=== PATIENT | male | born 1965 | race Caucasian/White ===

== ENCOUNTER 2016-09-09 02:46 | Emergency (ER) | payer OTHER ==
[~2016-09-09] VITALS: Ht 182.9 cm; Wt 88.0 kg
[~2016-09-09 02:46] MED LIST: PRIL40CA PO
[2016-09-09 02:48] VITALS: BP 141/95; PULSE 78; RESP 18; TEMP 98.2; O2SAT 98
[2016-09-09] MEDS ORDERED: HYDR12.57 PO (03:36)
[2016-09-09] MEDS ORDERED: OMEP40CA2 PO (03:36)
--- NOTE | 2016-09-09 04:09 | PD ---
HPI Chief Complaint: Syncope/Near-Syncope Time Seen by Provider: 03:34 Travel History International Travel<30 days: No Contact w/Intl Traveler<30days: No Traveled to known affect area: No History of Present Illness HPI 51-year-old male here for evaluation of feeling nauseous/lightheaded/dizzy. Patient reports symptoms have been going on for the last week. He states he feels as though he is sea sick. He states that last weekend he notices blood pressure was elevated and he was seen by his primary care physician 5 days ago and was started on hydrochlorothiazide. Patient drank about 5 beers tonight, and reports persistent nauseous feeling. He denies chest pain or dyspnea. No fevers or recent illness. No abdominal pain. No paresthesias or motor deficits. No visual disturbances. Patient feels as though he may pass out, but denies having any syncopal episodes. PFSH Past Medical History Cardiovascular Problems: Yes (Heart Murmur) Diminished Hearing: No GERD: Yes Hypertension: Yes ?: Not Past Surgical History Surgical History: No Previous Surgery Social History Alcohol Use: Yes (EARLIER TONIGHT ) Tobacco Use: No Substance Use: No Allergies-Medications (Allergen,Severity, Reaction): Coded Allergies: Penicillin (Verified Allergy, Severe, 06/06/15) Reported Meds & Prescriptions Reported Meds & Active Scripts Active Reported Hydrochlorothiazide 12.5 Mg Cap 12.5 Mg PO DAILY Omeprazole 40 Mg Cap 40 Mg PO DAILY Prilosec 40 mg cap (Omeprazole) 40 Mg Cap 40 Mg PO DAILY Review of Systems Except as stated in HPI: all other systems reviewed are Neg Physical Exam Narrative GENERAL: Well-developed, well-nourished, awake, alert, GCS 15, no acute distress. SKIN: Focused skin assessment warm/dry. No pallor. No rashes. HEAD: Atraumatic. Normocephalic. EYES: Pupils equal, round, 3 mm, reactive to light. EOMI. No scleral icterus. No injection or drainage. ENT: No nasal bleeding or discharge. Mucous membranes pink and moist. Bilateral tympanic and rates and external auditory canals are normal. NECK: Trachea midline. No JVD. CARDIOVASCULAR: Regular rate and rhythm. RESPIRATORY: No accessory muscle use. Clear to auscultation. Breath sounds equal bilaterally. GASTROINTESTINAL: Abdomen soft, non-tender, nondistended. MUSCULOSKELETAL: No obvious deformities. No clubbing. No cyanosis. No edema. NEUROLOGICAL: Awake and alert. No obvious cranial nerve deficits. Motor grossly within normal limits. Normal speech. No focal deficits. Normal finger- nose-finger test bilaterally. No pronator drift. PSYCHIATRIC: Appropriate mood and affect; insight and judgment normal. Data Data Last Documented VS Vital Signs Date Time Temp Pulse Resp B/P Pulse Ox O2 Delivery O2 Flow Rate FiO2 09/09/16 02:48 98.2 78 18 141/95 98 Room Air Orders Basic Metabolic Panel (Bmp) (09/09/16 04:01) Ckmb (Isoenzyme) Profile (09/09/16 04:01) Complete Blood Count With Diff (09/09/16 04:01) Magnesium (Mg) (09/09/16 04:01) Prothrombin Time / Inr (Pt) (09/09/16 04:01) Act Partial Throm Time (Ptt) (09/09/16 04:01) Troponin I (09/09/16 04:01) Ecg Monitoring (09/09/16 04:01) Iv Access Insert/Monitor (09/09/16 04:01) Oximetry (09/09/16 04:01) Sodium Chloride 0.9% Flush (Ns Flush) (09/09/16 04:15) Alcohol (Ethanol) (09/09/16 04:01) Sodium Chlor 0.9% 1000 Ml Inj (Ns 1000 M (09/09/16 04:15) Metoclopramide Inj (Reglan Inj) (09/09/16 04:15) Ct Brain W/O Iv Contrast(Rout) (09/09/16 ) CKMB (09/09/16 04:10) CKMB% (09/09/16 04:10) Labs Laboratory Tests Test 09/09/16 04:10 White Blood Count 7.2 TH/MM3 Red Blood Count 5.30 MIL/MM3 Hemoglobin 16.0 GM/DL Hematocrit 45.2 % Mean Corpuscular Volume 85.3 FL Mean Corpuscular Hemoglobin 30.2 PG Mean Corpuscular Hemoglobin 35.4 % Concent Red Cell Distribution Width 13.7 % Platelet Count 239 TH/MM3 Mean Platelet Volume 9.9 FL Neutrophils (%) (Auto) 65.9 % Lymphocytes (%) (Auto) 23.8 % Monocytes (%) (Auto) 8.5 % Eosinophils (%) (Auto) 1.3 % Basophils (%) (Auto) 0.5 % Neutrophils # (Auto) 4.8 TH/MM3 Lymphocytes # (Auto) 1.7 TH/MM3 Monocytes # (Auto) 0.6 TH/MM3 Eosinophils # (Auto) 0.1 TH/MM3 Basophils # (Auto) 0.0 TH/MM3 CBC Comment DIFF FINAL Differential Comment Prothrombin Time 10.2 SEC Prothromb Time International 0.9 RATIO Ratio Activated Partial 27.1 SEC Thromboplast Time Anion Gap 8 MEQ/L Estimat Glomerular Filtration 79 ML/MIN Rate Total Creatine Kinase 241 U/L Creatine Kinase MB 1.9 NG/ML Troponin I LESS THAN 0.02 NG/ML Ethyl Alcohol Level 8 MG/DL [facility] Medical Decision Making Medical Screen Exam Complete: Yes Emergency Medical Condition: Yes Medical Record Reviewed: Yes Interpretation(s) EKG: Sinus, rate 75, left axis deviation, normal intervals, no acute ischemic abnormality. Differential Diagnosis Intracranial abnormality, vertigo, anemia, metabolic abnormality Narrative Course Vital signs show heart rate 78, blood pressure 141/95, pulse ox 98% on room air , oral temp of 98.2F. CBC is unremarkable. BMP is unremarkable. Cardiac enzymes are negative. Alcohol level is 8. CT head: Unremarkable study. Chart review shows that the patient has history of mild aortic stenosis. The patient reports that he gets this checked every year and has remained unchanged. On exam there is no obvious or harsh murmur. He has also not had any syncopal episodes. He was given Reglan IV and reports feeling improved. He is tolerating clear liquids. He is denying headache. No chest pain. There are no significant neurologic findings on exam. His symptoms were exacerbated by movements. Sounds more like peripheral vertigo. At this point patient is stable for discharge home with outpatient follow-up with his primary care physician. He is a follow-up appointment with his physician on Saturday as she just started him on hydrochlorothiazide last week. He was informed on when to return to the emergency department. He verbalizes understanding and agreement with plan. Diagnosis Primary Impression: Dizziness Referrals: Primary Care Physician 3 days Additional Instructions: Follow-up with your primary care physician this week as scheduled. Return to the emergency department for worsening symptoms or any other concerns. Scripts Metoclopramide (Reglan)10 Mg Tab10 Mg PO TIDAC #20 TAB Ref 0 Prov:Paul Mcleod MD 09/09/16 Disposition: 01 DISCHARGE HOME Condition: Stable Paul Mcleod MD Sep 09, 2016 04:09
[2016-09-09] MEDS ORDERED: METOCLOPRAMIDE HCL 10 MG/2 ML VIAL IV PUSH ONE (04:15)
[2016-09-09] MEDS ORDERED: SODIUM CHLORIDE 0.9% FLUSH 10 ML FLUSH IVF PRN (04:15)
[2016-09-09] MEDS ORDERED: SODIUM CHLOR 0.9% 1000 ML INJ 1,000 ML IV ONE (04:15)
[2016-09-09 04:42] LABS: AUTOMATED NEUTROPHIL # 4.8 TH/MM3 (1.8-7.7); BASOPHIL % 0.5 % (0.0-2.0); EOSINOPHIL # 0.1 TH/MM3 (0-0.4); EOSINOPHIL % 1.3 % (0.0-4.0); HEMATOCRIT 45.2 % (39.0-51.0); HEMO FLAGS DIFF FINAL; LYMPH % 23.8 % (9.0-44.0); LYMPHOCYTE # 1.7 TH/MM3 (1.0-4.8); MEAN CELL VOLUME 85.3 FL (80.0-100.0); MEAN CORPUSCULAR HEMOGLOBIN 30.2 PG (27.0-34.0); MEAN CORPUSCULAR HGB CONC 35.4 % (32.0-36.0); MONO % 8.5 % (0.0-8.0); NEUT % 65.9 % (16.0-70.0); PLATELET COUNT 239 TH/MM3 (150-450); RED CELL DISTRIBUTION WIDTH 13.7 % (11.6-17.2); WHITE BLOOD COUNT 7.2 TH/MM3 (4.0-11.0)
[2016-09-09 04:56] LABS: APTT (PATIENT) 27.1 SEC (24.3-30.1); INTERNATIONAL NORMALIZED RATIO 0.9 RATIO; PROTHROMBIN TIME - PATIENT 10.2 SEC (9.8-11.6)
[2016-09-09 05:01] LABS: ANION GAP 8 MEQ/L (5-15); BLOOD UREA NITROGEN 16 MG/DL (7-18); CHLORIDE 97 MEQ/L (98-107); GLOMERULAR FILTRATION RATE 79 ML/MIN (>89); MAGNESIUM 2.1 MG/DL (1.5-2.5); POTASSIUM 3.6 MEQ/L (3.5-5.1); SODIUM (NA) 135 MEQ/L (136-145)
[2016-09-09 05:04] LABS: CREATINE KINASE 241 U/L (39-308)
[2016-09-09 05:16] LABS: CKMB 1.9 NG/ML (0.5-3.6)
--- NOTE | 2016-09-09 05:16 | RADRPT ---
EXAM DATE/TIME: 09/09/2016 05:03 [facility] COMPARISON: No previous studies available for comparison. INDICATIONS : Dizziness. RADIATION DOSE: 56.35 CTDIvol (mGy) MEDICAL HISTORY : Gastroesophageal reflux disease. Hypertension. Cardiovascular disease SURGICAL HISTORY : None. ENCOUNTER: Initial ACUITY: 1 day PAIN SCALE: 0/10 LOCATION: cranial TECHNIQUE: Multiple contiguous axial images were obtained of the head. Using automated exposure control and adj ustment of the mA and/or kV according to patient size, radiation dose was kept as low as reasonably a chievable to obtain optimal diagnostic quality images. FINDINGS: There is no evidence for intracranial hemorrhage, mass effect, mass lesions, edema, or extra-axial fl uid collections. The visualized bony structures appear intact. The ventricles are normal size for t he patient's age. There are no signs of acute infarction for technique. CONCLUSION: Unremarkable study. Evangelist Gan MD on September 09, 2016 at 5:13 Board Certified Radiologist. This report was verified electronically.
[2016-09-09] MEDS ORDERED: REGL10TA5 PO (05:34)
--- NOTE | 2016-09-09 14:46 | EKG ---
Date Performed: 09/09/2016 Time Performed: 03:29:13 PTAGE: 51 years EKG: Borderline left axis deviation Otherwise within normal limits Since PREVIOUS TRACING 06/06/2015, no significant change. PREVIOUS TRACIN06/06/2015 02.04 DOCTOR: Mainor Strickland Interpretating Date/Time 09/09/2016 14:45:29
== END 2016-09-09 05:47 | disposition home or self-care (01) ==
LOC: NEPE 02:46
DX: R42 Dizziness and giddiness (principal); I10 Essential (primary) hypertension; R01.1 Cardiac murmur, unspecified; K21.9 Gastro-esophageal reflux disease without esophagitis; I35.0 Nonrheumatic aortic (valve) stenosis; Z79.899 Other long term (current) drug therapy
CPT/HCPCS: 70450; 80048; 80307; 82550; 82552; 83735; 84484; 85025; 85610; 85730; 93005; 96361; 96374; 99285; J2765; J7030

== ENCOUNTER 2017-10-17 10:32 | Observation (INO) ==
--- NOTE | 2017-10-17 11:08 | ED ---
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 He denies other concurrent complaints, denies family history of heart disease complaint: chest pain Complete Quality Measures for STEMI Alert Patients STEMI Alert: No Onset (ago): minute(s) Duration: constant Onset: during rest Pain location: substernal Severity: mild Severity scale (1-10): 1 Quality: dull Pain radiation: neck Relieving factors: nothing Exacerbating factors: nothing Treatments prior to arrival chest pain: aspirin Related Data Home Medications Medication Instructions Recorded Confirmed lisinopril 10 mg PO DAILY 10/17/17 10/17/17 omeprazole 20 mg PO QPM 10/17/17 10/17/17 Allergies Allergy/AdvReac Type Severity Reaction Status Date / Time penicillin G Allergy Severe Unverified 11/20/16 18:57 Review of Systems Except as stated in HPI: all other systems reviewed are negative [facility] Medical History Medical History High cholesterol (Acute) Hypertension (Acute) Social History Social History Second Hand Smoke Exposure: No Smoking Status: Former smoker Tobacco Type: Cigarettes How Often Do You Have a Drink Containing Alcohol: Monthly or less Recent Travel in [facility] within the Last 8 Weeks: No Recent Out of Country Travel within the Last 8 Weeks: No Immunization History Tetanus Immunization: <5 Years Exam Narrative Exam Narrative: GENERAL: 52-year-old male in no apparent distress SKIN: Focused skin assessment warm/dry. HEAD: Atraumatic. Normocephalic. EYES: Pupils equal and round. No scleral icterus. No injection or drainage. ENT: No nasal bleeding or discharge. Mucous membranes pink and moist. NECK: Trachea midline. No JVD. CARDIOVASCULAR: Regular rate and rhythm. No murmur appreciated. RESPIRATORY: No accessory muscle use. Clear to auscultation. Breath sounds equal bilaterally. GASTROINTESTINAL: Abdomen soft, non-tender, nondistended. MUSCULOSKELETAL: No obvious deformities. No clubbing. No cyanosis. No edema. NEUROLOGICAL: Awake and alert. No obvious cranial nerve deficits. Motor grossly within normal limits. Normal speech. PSYCHIATRIC: Appropriate mood and affect; insight and judgment normal. Course Reevaluation(s) Reevaluation #1: ed workup no acute, agrees to observation in [facility] Initial Documented Vital Signs Temperature 98.8 F 10/17/17 10:42 Pulse Rate 72 10/17/17 10:42 Respiratory Rate 17 10/17/17 10:42 Blood Pressure 156/95 H 10/17/17 10:42 Pulse Oximetry 100 10/17/17 10:42 Last Documented Vital Signs Temperature 98.8 F 10/17/17 10:42 Pulse Rate 72 10/17/17 10:48 Respiratory Rate 18 10/17/17 10:48 Blood Pressure 156/95 H 10/17/17 10:42 Pulse Oximetry 96 10/17/17 11:11 Medical Decision Making MDM Narrative Medical decision making narrative: Will check blood work, x-ray and reevaluate. Already received aspirin and pain skills only one currently. Differential Diagnosis Differential Diagnosis: Musculoskeletal, gastritis, PE, cardiac Lab Data Lab results reviewed: Yes I reviewed the patient's lab results. Result diagrams: 10/17/17 11:05 10/17/17 11:05 Lab Results 10/17/17 10/17/17 10/17/17 Range/Units 11:05 11:05 11:05 WBC 6.1 (4.0-11.0) th/mm3 RBC 4.77 (4.50-5.90) mil/mm3 Hgb 14.8 (13.0-17.0) gm/dL Hct 41.4 (39.0-51.0) % MCV 86.7 (80.0-100.0) fL MCH 31.1 (27.0-34.0) pg MCHC 35.8 (32.0-36.0) % RDW 13.2 (11.6-17.2) % Plt Count 223 (150-450) th/mm3 MPV 8.9 (7.0-11.0) fL Neut % (Auto) 61.9 (16.0-70.0) % Lymph % (Auto) 27.0 (9.0-44.0) % [place] % (Auto) 8.9 H (0.0-8.0) % Eos % (Auto) 1.5 (0.0-4.0) % Baso % (Auto) 0.7 (0.0-2.0) % Neut # (Auto) 3.8 (1.8-7.7) th/mm3 Lymph # (Auto) 1.7 (1.0-4.8) th/mm3 [place] # (Auto) 0.5 (0.0-0.9) th/mm3 Eos # (Auto) 0.1 (0.0-0.4) th/mm3 Baso # (Auto) 0.0 (0.0-0.2) th/mm3 WBC Differential . Differential Comment Auto diff final PT 10.1 (9.8-11.6) sec INR 1.0 Ratio APTT 25.4 (24.3-30.1) sec D-Dimer Quant (PE/DVT) (0.00-0.50) mg/L FEU Sodium 138 (136-145) meq/L Potassium 4.0 (3.5-5.1) meq/L Chloride 105 (98-107) meq/L Carbon Dioxide 20.8 L (21.0-32.0) meq/L Anion Gap 12 (5-15) meq/L BUN 16 (7-18) mg/dL Creatinine 1.10 (0.60-1.30) mg/dL Estimated GFR 70 L (>89) mL/min Random Glucose 99 (74-106) mg/dL Calcium 8.9 (8.5-10.1) mg/dL Magnesium 2.3 (1.5-2.5) mg/dL Total Bilirubin 0.5 (0.2-1.0) mg/dL AST 28 (15-37) U/L ALT 39 (12-78) U/L Alkaline Phosphatase 75 (45-117) U/L Total Creatine Kinase 240 (39-308) U/L CK-MB (CK-2) 1.7 (0.5-3.6) ng/mL Troponin I Less than 0.02 L (0.02-0.05) ng/mL Total Protein 7.7 (6.4-8.2) g/dL Albumin 3.7 (3.4-5.0) g/dL Lipase 84 (73-393) U/L /03/25 Range/Units 11:05 WBC (4.0-11.0) th/mm3 RBC (4.50-5.90) mil/mm3 Hgb (13.0-17.0) gm/dL Hct (39.0-51.0) % MCV (80.0-100.0) fL MCH (27.0-34.0) pg MCHC (32.0-36.0) % RDW (11.6-17.2) % Plt Count (150-450) th/mm3 MPV (7.0-11.0) fL Neut % (Auto) (16.0-70.0) % Lymph % (Auto) (9.0-44.0) % [place] % (Auto) (0.0-8.0) % Eos % (Auto) (0.0-4.0) % Baso % (Auto) (0.0-2.0) % Neut # (Auto) (1.8-7.7) th/mm3 Lymph # (Auto) (1.0-4.8) th/mm3 [place] # (Auto) (0.0-0.9) th/mm3 Eos # (Auto) (0.0-0.4) th/mm3 Baso # (Auto) (0.0-0.2) th/mm3 WBC Differential Differential Comment PT (9.8-11.6) sec INR Ratio APTT (24.3-30.1) sec D-Dimer Quant (PE/DVT) 0.25 (0.00-0.50) mg/L FEU Sodium (136-145) meq/L Potassium (3.5-5.1) meq/L Chloride (98-107) meq/L Carbon Dioxide (21.0-32.0) meq/L Anion Gap (5-15) meq/L BUN (7-18) mg/dL Creatinine (0.60-1.30) mg/dL Estimated GFR (>89) mL/min Random Glucose (74-106) mg/dL Calcium (8.5-10.1) mg/dL Magnesium (1.5-2.5) mg/dL Total Bilirubin (0.2-1.0) mg/dL AST (15-37) U/L ALT (12-78) U/L Alkaline Phosphatase (45-117) U/L Total Creatine Kinase (39-308) U/L CK-MB (CK-2) (0.5-3.6) ng/mL Troponin I (0.02-0.05) ng/mL Total Protein (6.4-8.2) g/dL Albumin (3.4-5.0) g/dL Lipase (73-393) U/L Imaging Data Attestation: I personally reviewed and interpreted this imaging study as follows : Radiologist's impression: ITS Impressions Chest X-Ray 10/17/17 10:45 CONCLUSION: Negative examination. Discharge Plan Discharge Disposition Patient Disposition: 30 Still Patient Discharge Condition Condition: Stable Discharge Details Diagnosis: Chest pain Physicians Team ED Provider: Nevaeh Sanchez Primary Care Provider: UNKNOWN, Attending Provider: John Matamoros Status ED Status: Admitted Observation Patient
[2017-10-17 11:15] LABS: Baso % (Auto) 0.7 % (0.0-2.0); Eos # (Auto) 0.1 th/mm3 (0.0-0.4); Eos % (Auto) 1.5 % (0.0-4.0); Hematocrit 41.4 % (39.0-51.0); Hemoglobin 14.8 gm/dL (13.0-17.0); Lymph # (Auto) 1.7 th/mm3 (1.0-4.8); Mean Corpuscular HGB Conc 35.8 % (32.0-36.0); Mean Corpuscular Hemoglobin 31.1 pg (27.0-34.0); Mean Corpuscular Volume 86.7 fL (80.0-100.0); Mean Platelet Volume 8.9 fL (7.0-11.0); Mono # (Auto) 0.5 th/mm3 (0.0-0.9); Mono % (Auto) 8.9 % (0.0-8.0); Neut # (Auto) 3.8 th/mm3 (1.8-7.7); Neut % (Auto) 61.9 % (16.0-70.0); Platelet Count 223 th/mm3 (150-450); Red Blood Count 4.77 mil/mm3 (4.50-5.90); Red Cell Distribution Width 13.2 % (11.6-17.2); White Blood Count 6.1 th/mm3 (4.0-11.0)
[2017-10-17 11:26] LABS: Activated Partial Thrombo Time 25.4 sec (24.3-30.1); Prothrombin Time 10.1 sec (9.8-11.6)
[2017-10-17 11:41] LABS: Alanine Aminotransferase 39 U/L (12-78)
[2017-10-17 11:45] LABS: Albumin 3.7 g/dL (3.4-5.0); Alkaline Phosphatase 75 U/L (45-117); Anion Gap 12 meq/L (5-15); Aspartate Aminotransferase 28 U/L (15-37); Blood Urea Nitrogen 16 mg/dL (7-18); Calcium 8.9 mg/dL (8.5-10.1); Carbon Dioxide 20.8 meq/L (21.0-32.0); Chloride 105 meq/L (98-107); Creatine Kinase 240 U/L (39-308); Glomerular Filtration Rate 70 mL/min (>89); Glucose,Random 99 mg/dL (74-106); Lipase 84 U/L (73-393); Magnesium 2.3 mg/dL (1.5-2.5); Sodium 138 meq/L (136-145); Total Protein 7.7 g/dL (6.4-8.2)
--- NOTE | 2017-10-17 11:51 | XR ---
EXAM DATE: 10/17/2017 11:10 AM EDT AGE/SEX: 52 years / Male INDICATIONS: Chest pain since this morning. CLINICAL DATA: This is the patient's initial encounter. Patient reports that signs and symptoms have been present for 1 day and indicates a pain score of 5/10. MEDICAL/SURGICAL HISTORY: None. None. COMPARISON: No prior exams available for comparison. FINDINGS: A single AP view of the chest demonstrates the lungs to be symmetrically aerated without evidence of mass, infiltrate or effusion. The cardiomediastinal contours are unremarkable. Osseous structures a re intact. CONCLUSION: Negative examination. Electronically signed by: Josesito De Dios MD 10/17/2017 11:49 AM EDT
[2017-10-17 11:57] LABS: Creatine Kinase MB 1.7 ng/mL (0.5-3.6)
--- NOTE | 2017-10-17 14:23 | P.HPCA ---
History of Present Illness Primary Care Physician: UNKNOWN Chief Complaint: Chest pain History of Present Illness: This is a 52-year-old male with history of hypertension, aortic stenosis, GERD, and hyperlipidemia that presents to ED with complaint of developing a discomfort just right of the sternum while he was sitting at work. Lasted about 30 seconds. It was a 4-5 out of 10. However the discomfort recurred 3 or 4 more times also lasting about 30-45 seconds. Denies associated shortness of breath, nausea, or diaphoresis. Symptoms did not radiate. Found nothing to worsen or improve. Found nothing to bring on the discomfort. Cannot recall having symptoms like this in the past. Denies having prior stress test or heart catheterization but states that he has had multiple 2D echo was as they have been watching his aortic valve. States he has history of aortic stenosis. States his last echo was March 2017 and that he was told it showed no progression. States that he follows Dr. Matamoros for that. Currently denies chest discomfort. Denies exertional chest pain and exertional shortness of breath. He was a past smoker quitting about 12 years ago but prior that he smoked about one half to three-quarter pack cigarettes daily for 20 years. He has on average 46 beers a day. Denies illicit drugs. 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 Denies family history of CAD. - Diagnosis (1) Chest pain (2) Hypertension (3) Hyperlipidemia (4) Aortic stenosis (5) GERD (gastroesophageal reflux disease) Inpatient Certification: I certify that the inpatient services were ordered in accordance with Medicare regulations governing the order. This includes certification that hospital inpatient services are reasonable and necessary and in the case of services not specified as inpatient-only under 42 CFR 419.22(n), that they are appropriately provided as inpatient services in accordance to with the 2-midnight benchmark under 43 CFR 412.3(e) Review of Systems General: Patient denies fevers, chills, and recent travel. HEENT: Patient denies headache, sore throat, difficulty swallowing. Cardiovascular: Has the chest discomfort as mentioned above. Denies sensation of heart beating rapidly or irregularly. No syncope. Denies diaphoresis. Respiratory: Denies shortness of breath or inspirational chest discomfort. Denies coughing wheezing or hemoptysis. GI: Patient denies nausea, vomiting, diarrhea, abdominal pain, bloody stools. Musculoskeletal: Patient denies joint pain or edema. Denies calf pain or edema. Neurovascular: Patient denies numbness, tingling, weakness in extremities. Denies headache. Endocrine: Denies polyuria and polydipsia. Hematologic: Denies easy bruising. Skin: Denies rash or itching. PMFSH - History History Provided By: Patient - Medical History Medical History: Medical History (Last Reviewed 10/17/17 @ 12:37 by Nevaeh Sanchez MD) High cholesterol Hypertension - Tobacco History Second Hand Smoke Exposure: No Tobacco Use In Past 30 Days: No Smoking Status: Former smoker Tobacco Type: Cigarettes - Alcohol History How Often Do You Have a Drink Containing Alcohol: Monthly or less - Travel History Recent Travel in the [place] Within the Last 8 Weeks: No Recent Travel Out of the Country Within the Last 8 Weeks: No - Immunization History Tetanus Immunization: <5 Years Medications and Allergies Active Medications: Active Medications Aspirin (Aspirin) 325 mg PO DAILY ARUN Lisinopril (Prinivil) 10 mg PO DAILY ARUN Non-Formulary Medication (Omeprazole [Omeprazole]) 20 mg PO QPM ARUN Ondansetron HCl (Zofran Inj) 4 mg IV.PUSH Q6H PRN PRN Reason: NAUSEA Sodium Chloride (Ns Flush) 2 ml IV.FLUSH UNSCH PRN PRN Reason: FLUSH AFTER USING IV ACCESS Sodium Chloride (Ns Flush) 2 ml IV.FLUSH BID ARUN Sodium Chloride (Ns Flush) 2 ml IV.FLUSH PRN PRN PRN Reason: FLUSH AFTER USING IV ACCESS Allergies Allergy/AdvReac Type Severity Reaction Status Date / Time penicillin G Allergy Severe Unverified 11/20/16 18:57 Home Medications Medication Instructions Recorded Confirmed Type lisinopril 10 mg PO DAILY 10/17/17 10/17/17 History omeprazole 20 mg PO QPM 10/17/17 10/17/17 History Exam Vital signs: Vital Signs 10/17/17 10:42 10/17/17 10:48 10/17/17 11:11 Temperature 98.8 F Pulse Rate 72 72 Respiratory Rate 17 18 Blood Pressure 156/95 H Pulse Oximetry 100 100 96 10/17/17 12:52 Temperature Pulse Rate 66 Respiratory Rate 17 Blood Pressure 142/84 H Pulse Oximetry 98 Intake & Output 10/16/17 10/17/17 10/17/17 18:59 06:59 18:59 Weight 88.451 kg Narrative: GENERAL: This is a well-nourished, well-developed patient, in no apparent distress. Patient speaks in clear complete sentences. Patient is pleasant. HEENT: Head is atraumatic and normocephalic. Neck is supple without lymphadenopathy and trachea is midline. No JVD or carotid bruits. CARDIOVASCULAR: Grade 2 out of 6 systolic murmur right sternal border radiating to neck. Also 2 out of 6 systolic murmur left sternal border likely mitral regurgitation. Regular rate and rhythm without gallops, or rubs. RESPIRATORY: Clear to auscultation. Breath sounds equal bilaterally. No wheezes , rales, or rhonchi. Chest wall is nontender. No use of accessory muscles. GASTROINTESTINAL: Abdomen is nontender, nondistended. Abdomen soft. No obvious pulsatile mass or bruit. No CVA tenderness. Strong femoral pulses bilaterally. Normal bowel sounds in all quadrants. MUSCULOSKELETAL: Patient is moving upper and lower extremities freely. No calf tenderness or edema, no Homans sign. Strong pulses in upper and lower extremities. NEUROLOGICAL: Patient is alert and oriented. Cranial nerves 2-12 are grossly intact. No focal deficits and speech is clear. SKIN: No rash and turgor is normal. Results 10/17/17 11:05 10/17/17 11:05 Cardiac Enzymes 10/17/17 Range/Units 11:05 AST 28 (15-37) U/L CK-MB (CK-2) 1.7 (0.5-3.6) ng/mL Troponin I Less than 0.02 L (0.02-0.05) ng/mL Coagulation 10/17/17 Range/Units 11:05 PT 10.1 (9.8-11.6) sec APTT 25.4 (24.3-30.1) sec CBC 10/17/17 Range/Units 11:05 WBC 6.1 (4.0-11.0) th/mm3 RBC 4.77 (4.50-5.90) mil/mm3 Hgb 14.8 (13.0-17.0) gm/dL Hct 41.4 (39.0-51.0) % Plt Count 223 (150-450) th/mm3 Neut # (Auto) 3.8 (1.8-7.7) th/mm3 Lymph # (Auto) 1.7 (1.0-4.8) th/mm3 Finney # (Auto) 0.5 (0.0-0.9) th/mm3 Eos # (Auto) 0.1 (0.0-0.4) th/mm3 Baso # (Auto) 0.0 (0.0-0.2) th/mm3 Comprehensive Metabolic Panel 10/17/17 Range/Units 11:05 Sodium 138 (136-145) meq/L Potassium 4.0 (3.5-5.1) meq/L Chloride 105 (98-107) meq/L Carbon Dioxide 20.8 L (21.0-32.0) meq/L BUN 16 (7-18) mg/dL Creatinine 1.10 (0.60-1.30) mg/dL Calcium 8.9 (8.5-10.1) mg/dL AST 28 (15-37) U/L ALT 39 (12-78) U/L Alkaline Phosphatase 75 (45-117) U/L Total Protein 7.7 (6.4-8.2) g/dL Albumin 3.7 (3.4-5.0) g/dL Intake and Output 10/16/17 10/17/17 10/17/17 22:59 06:59 14:59 Other: Weight 88.451 kg Patient Weight 10/18/17 06:59 Weight 88.451 kg EKG interpretations - EKG EKG shows: sinus rhythm (Initial EKG is sinus rhythm without significant ST segment depressions or elevations.) Caprini VTE Risk Assessment Caprini VTE Risk Assessment: No/Low Risk (score <= 1) Caprini Risk Assessment Model: Point Value = 1 Point Value = 2 Point Value = 3 Point Value = 5 Age 41-60 Minor surgery BMI > 25 kg/m2 Swollen legs Varicose veins or History of unexplained or recurrent spontaneous Oral contraceptives or hormone replacement Sepsis (< 1 month) Serious lung disease, including pneumonia (< 1 month) Abnormal pulmonary function Acute myocardial infarction Congestive heart failure (< 1 month) History of inflammatory bowel disease Medical patient at bed rest Age 61-74 Arthroscopic surgery Major open surgery (> 45 min) Laparoscopic surgery (> 45 min) Malignancy Confined to bed (> 72 hours) Immobilizing plaster cast Central venous access Age >= 75 History of VTE Family history of VTE Factor V Leiden Prothrombin [id number] Lupus anticoagulant Anticardiolipin antibodies Elevated serum homocysteine Heparin-induced thrombocytopenia Other congenital or acquired thrombophilia Stroke (< 1 month) Elective arthroplasty Hip, pelvis, or leg fracture Acute spinal cord injury (< 1 month) Prophylaxis Regimen: Total Risk Factor Score Risk Level Prophylaxis Regimen 0-1 Low Early ambulation 2 Moderate Order ONE of the following: *Sequential Compression Device (SCD) *Heparin 5000 units SQ BID 3-4 Higher Order ONE of the following medications: *Heparin 5000 units SQ TID *Enoxaparin/Lovenox 40 mg SQ daily (WT < 150 kg, CrCl > 30 mL/min) *Enoxaparin/Lovenox 30 mg SQ daily (WT < 150 kg, CrCl > 10-29 mL/min) *Enoxaparin/Lovenox 30 mg SQ BID (WT < 150 kg, CrCl > 30 mL/min) AND/OR *Sequential Compression Device (SCD) 5 or more Highest Order ONE of the following medications: *Heparin 5000 units SQ TID (Preferred with Epidurals) *Enoxaparin/Lovenox 40 mg SQ daily (WT < 150 kg, CrCl > 30 mL/min) *Enoxaparin/Lovenox 30 mg SQ daily (WT < 150 kg, CrCl > 10-29 mL/min) *Enoxaparin/Lovenox 30 mg SQ BID (WT < 150 kg, CrCl > 30 mL/min) AND *Sequential Compression Device (SCD) Assessment and Plan - Assessment (1) Chest pain Code(s): R07.9 - Chest pain, unspecified Status: Acute (2) Hypertension Code(s): I10 - Essential (primary) hypertension Status: Acute (3) Hyperlipidemia Code(s): E78.5 - Hyperlipidemia, unspecified Status: Acute (4) Aortic stenosis Code(s): I35.0 - Nonrheumatic aortic (valve) stenosis Status: Acute (5) GERD (gastroesophageal reflux disease) Code(s): K21.9 - Gastro-esophageal reflux disease without esophagitis Status: Acute - Plan * Chest pain: Patient has had first set of cardiac enzymes and EKG and has been seen by Dr. John Matamoros of cardiology in the [facility]. At this time he will undergo a Lexiscan. He will be discharged home if the stress test is nonischemic with instructions to follow-up with his PCP and mechanical engineering director. * History of aortic stenosis: Was able to review 2D echo from March 2017 revealing moderate aortic stenosis with mild LVH. Patient will need to continue follow-up with his mechanical engineering director. * Hypertension: Continue medication. * Hyperlipidemia: Continue medication. Patient is stable at this time. He is agreeable to this plan. (1) Chest pain Qualifiers: Chest pain type: unspecified Qualified Code(s): R07.9 - Chest pain, unspecified
[2017-10-17] MEDS ORDERED: Regadenoson Inj 0.4 MG/5 ML Syringe IV.PUSH ONE (15:05)
--- NOTE | 2017-10-17 16:23 | NM ---
EXAM DATE: 10/17/2017 4:17 PM EDT AGE/SEX: 52 years / Male INDICATIONS:Angina. . Substernal chest pain. CLINICAL DATA: This is the patient's initial encounter. Patient reports that signs and symptoms have been present for 1 day and indicates a pain score of 3/10. MEDICAL/SURGICAL HISTORY: Hypertension. None. COMPARISON: No prior exams available for comparison. DOSE: 8.7 mCi Tc 99m Myoview at rest 26.8 mCi [id number] at stress 0.4 mg Lexiscan STRESS SYMPTOMS: None. EJECTION FRACTION: 68 % TECHNIQUE: The patient underwent pharmacologic stress with infusion of prescribed dose. Continuous ECG tracing was monitored during stress. Gated SPECT imaging was performed after stress and conventi onal SPECT imaging was performed at rest. The examination was performed on a SPECT/CT scanner, both attenuation and non-corrected datasets were reviewed. FINDINGS: Distribution: The maximum perfused segment at stress is in the anterior wall. Perfusion Study: The pattern of perfusion at stress is within normal limits. Gated Study: There are intact wall motion and wall thickening without hypokinetic or dyskinetic segm ents. The ejection fraction is calculated at 68%. RISK CATEGORY: Low (<1% Annual Motality Rate) CONCLUSION: 1. Negative examination. 2. No evidence of fixed or reversible perfusion abnormalities. 3. Normal ejection fraction and wall motion. Electronically signed by: Kem Laboy MD 10/17/2017 4:22 PM EDT
[2017-10-17] MEDS ORDERED: Pantoprazole Sodium 20 MG DR Tablet PO SCH (18:00)
[2017-10-18] MEDS ORDERED: Aspirin 325 MG Tablet PO SCH (09:00)
[2017-10-18] MEDS ORDERED: Lisinopril 10 MG Tablet PO SCH (09:00)
--- NOTE | 2017-10-18 18:09 | ECG ---
Date Performed: 10/17/2017 Time Performed: 10:44:19 PTAGE: 52 years EKG: Sinus rhythm MARKED LEFT AXIS DEVIATION MINIMAL VOLTAGE CRITERIA FOR LVH, CONSIDER NORMAL VARIANT ABNORMAL ECG PREVIOUS TRACING : 09/09/2016 03.29 COMPARED WITH PREVIOUS TRACING NO SIGNIFICANT CHANGE DOCTOR: Jony Charlton Interpretating Date/Time 10/18/2017 18:08:40
--- NOTE | 2018-01-07 13:19 | TR ---
Date Performed: 10/17/2017 Time Performed: 15:08:51 DOCTOR: John Matamoros DRUG LIST: CLINICAL HISTORY: REASON FOR TEST: REASON FOR ENDING: OBSERVATION: CONCLUSION: COMMENTS: Lexiscan stress test was performed under standard four minute protocol. Radionuclide was injected one minute prior to ending the test. No electrocardiographic abormalities were present t o suggest ischemia. Nuclear imaging and interpretation are pending.
== END 2017-10-17 17:15 | disposition home or self-care (01) ==
LOC: NEPFCDU 10:32 → NEPE 10:32 → NEDA 10:32 → NEPFCDU 16:12
PROVIDERS: ADMIT Internal Medicine Cardiovascular Disease; ATTEND Internal Medicine Cardiovascular Disease